=== PATIENT | male | born 1955 | race African-American/Black ===

== ENCOUNTER 2021-07-25 12:34 | Emergency (ER) | payer MEDICARE, MEDICAID ==
[~2021-07-25] VITALS: Ht 180.3 cm; Wt 82.0 kg
[2021-07-25] MEDS ORDERED: SODIUM CHLORIDE 0.9% 1,000 ML IV ONE (13:00)
[2021-07-25 15:29] LABS: CHLORIDE 104 mEq/L (98-107)
[2021-07-25 16:20] VITALS: BP 123/63
== END 2021-07-25 16:31 | disposition home or self-care (01) ==
LOC: ER 12:34
DX: E11.65 Type 2 diabetes mellitus with hyperglycemia (principal); E78.00 Pure hypercholesterolemia, unspecified; I10 Essential (primary) hypertension; F17.290 Nicotine dependence, other tobacco product, uncomplicated; F15.10 Other stimulant abuse, uncomplicated
CPT/HCPCS: 36415; 80048; 82962; 93005; 96360; 99284; J7030